=== PATIENT | female | born 1955 | race Two or more races ===

== ENCOUNTER 2018-08-06 12:10 | Emergency (ER) | payer MEDICARE, MEDICAID ==
[~2018-08-06] VITALS: Ht 160 cm; Wt 70.7 kg
[2018-08-06 12:29] VITALS: BP 177/96
[2018-08-06] MEDS ORDERED: DEXAMETHASONE 4 MG TABLET ONE (12:58)
[2018-08-06] MEDS ORDERED: DEXAMETHASONE 4 MG/ML, 1ML PO ONE (13:00)
[2018-08-06] MEDS ORDERED: DEXAMETHASONE 4 MG/ML, 1ML ONE (13:01)
== END 2018-08-06 14:15 | disposition home or self-care (01) ==
LOC: ED 14:13
DX: B34.9 Viral infection, unspecified (principal); I25.2 Old myocardial infarction
CPT/HCPCS: 71046; 99284; J1100